=== PATIENT | female | born 1980 | race Hispanic/Latino ===

== ENCOUNTER 2023-12-14 00:47 | Inpatient (IN) | payer OTHER, SELFPAY ==
[2023-12-13 18:35] VITALS: BP 145/95
[2023-12-13 19:06] LABS: Urine Albumin Negative (Neg - Trace); Urine Bilirubin Negative (Negative); Urine Character Clear (Clear); Urine Color Yellow; Urine Glucose Negative (Negative); Urine Ketone Negative (Negative); Urine Leukocyte 2+ (Negative); Urine Nitrite Positive (Negative); Urine Occult Blood 3+ (Negative); Urine Urobilinogen Negative (Neg - 1+)
[2023-12-13 19:19] VITALS: BP 138/87
[2023-12-13 19:20] LABS: Urine Bacteria Moderate (Negative)
[2023-12-13 19:21] LABS: Urine White Cell 16-20 /HPF (0-5)
[2023-12-13 19:22] LABS: Urine Red Blood Cell 0-2 /HPF (0-2)
[2023-12-13 20:00] VITALS: BP 125/83
--- NOTE | 2023-12-13 20:46 | ED.GENMED ---
History of Present Illness
General
Chief Complaint: Abdominal Pain
Source: patient and welt slasher
Exam Limitations: none
Time Seen by Provider: 12/13/23 20:29
Nursing documentation reviewed up to this point in time: agreed with
Travel History
Have you had any contact with someone who has COVID-19?: No
Do you have any symptoms of coronavirus? Fever > 100 degrees, chills, cough, shortness of breath, sore throat, loss of taste or smell, muscle aches, or headache?: No
History of Present Illness
History of Present Illness:
43-year-old female presents emergency room complaining of right-sided abdominal pain since 11 AM. It came on suddenly. Her pain is persistent. She did not take any medication for the pain. No fevers. Nausea and vomiting. Hysterectomy 3 months
ago.
Past History
Past History
ED Past Medical History: HTN
ED Past Surgical History: and Gynecological (Hysterectomy)
Social History
Tobacco: Non-smoker
Alcohol: None
Drug: None
Personal:
Review of Systems
Review of Systems
Allergies reviewed?: Yes
All Other Systems: Not applicable
Constitutional: Reports no symptoms
EENT: Reports no symptoms
Respiratory: Reports no symptoms
Cardiac: Reports no symptoms
ABD/GI: Reports abdominal pain, nausea and vomiting
: Reports no symptoms
Musculoskeletal: Reports no symptoms
Skin: Reports no symptoms
Neurological: Reports no symptoms
Endocrine: Reports no symptoms
Hematologic/Lymphatic: Reports no symptoms
Psychiatric: Reports no symptoms
Phy Exam
Physical Exam
Physical Exam:
Physical Exam
General: Appears uncomfortable, afebrile
Neck: supple. no meningeal signs. normal posterior pharynx
Heart: s1/s2 regular rate and rhythm, no murmur. equal radial
pulses.
HEENT: Pupils equal round reactive to light, EOMI
Lungs: no acute respiratory distress. clear bilaterally
Abdomen: normal bowel sounds. Diffuse abdominal tenderness, right greater than left. No CVAT
Neuro: alert and oriented. no focal neurological deficits cranial nerves II through XII intact
Skin: no rash
Psychiatric: well kept. interactive and cooperative
Extremities: no edema. no calf tenderness. negative homans. good distal pulses
Course
Orders/Labs/Results
Orders:
Orders
12/13/23 18:53
Urinalysis Reflex To Culture Urgent
Date Specimen was Collected: 12/13/23
Time Specimen was Collected: 18:46
Urine Microscopic Reflex Cult Urgent
Urine Culture Urgent
ASHLEY Source: U
Specimen Description:
Date Specimen was Collected: 12/13/23
Time Specimen was Collected: 18:46
12/13/23 20:44
CT Abd/pelvis W Iv Cont Urgent
Comment:
Reason For Exam: right side abdominal pain for 9 hours
Morphine Sulfate 4 mg IV NOW STA
Ondansetron Injectable [Zofran] 4 mg IV NOW STA
12/13/23 20:45
IV Insert/Care/Rem.- Treatment PRN
0.9% Sodium Chloride 1000 ml [Nss] 1,000 ml IV BOLUS
12/13/23 21:11
Complete Blood Count/With Diff Urgent
Comprehensive Metabolic Panel Urgent
Lipase Urgent
Magnesium Urgent
Comment: ADD ON
12/13/23 21:59
Add On- LAB Urgent
Tests Added?: magnesium
12/13/23 22:06
Potassium Chloride [KCl] 40 meq 0.9% Sodium Chloride 250 ml [Nss] 250 ml IV NOW
12/13/23 23:19
CefTRIAXone [Rocephin] 1,000 mg IV NOW STA
12/14/23 08:00
Potassium Chloride 10% Elixir [KCl Elixir] 40 meq PO DAILY
Abnormal Lab Results
12/13/23 12/13/23
18:53 21:11
WBC 15.8 H 10^3/uL
(4.8-10.8)
Hct 33.1 L %
(37.0-47.0)
MCV 76.8 L fL
(81.0-99.0)
MCHC 37.2 H g/dL
(33.0-37.0)
Abs Immat Gran (auto) 0.1 H 10^3/uL
(0-0.05)
Absolute Neuts (auto) 11.1 H 10^3/uL
(1.4-6.5)
Absolute Monos (auto) 1.4 H 10^3/uL
(0.1-0.6)
Lymphocytes % 19.0 L %
(20.5-51.1)
Sodium 128 L mmol/L
(135-145)
Potassium 2.6 L* mmol/L
(3.5-5.1)
Chloride 92 L mmol/L
(98-107)
Ur Occult Blood Reflex 3+ A
(Negative)
Urine Nitrite (Reflex) Positive A
(Negative)
Leukocyte Esterase Rfl 2+ A
(Negative)
Urine WBC (Reflex) 16-20 A /HPF
(0-5)
Urine Bacteria (Reflex) Moderate A
(Negative)
12/13/23 21:11
12/13/23 21:11
Vital Signs
Initial and Last Documented VS:
Initial Vital Signs
Temp Pulse Resp BP Pulse Ox
98.1 F 86 18 145/95 99
12/13/23 18:35 12/13/23 18:35 12/13/23 18:35 12/13/23 18:35 12/13/23 18:35
Last Documented Vital Signs
Temp Pulse Resp BP Pulse Ox
98.1 F 73 14 127/75 99
12/13/23 18:35 12/13/23 22:30 12/13/23 21:15 12/13/23 22:00 12/13/23 22:30
MDM/Problems Addressed
Differential Diagnosis Includes:
Appendicitis, pyelonephritis, kidney stone
MDM/Problems Addressed:
43-year-old female with pyelonephritis, hypokalemia and hyponatremia. CT abdomen pelvis no signs of appendicitis. IV potassium given, IV Rocephin ordered. Admit to hospital
Chronic conditions affecting care: Previous abdomnial surgery ( and hysterectomy)
Acute Exacerbation and/or Progression of Chronic Illness: Previous abdomnial surgery ( hysterectomy)
*Radiology
Radiology exam reviewed: radiology read reviewed (CT abdomen pelvis shows mild right hydroureter, no signs of obstructive uropathy, no signs of appendicitis or acute findings.)
*Pulse Oximetry
Patient hypoxic: no
*EKG
Interpreted by ED Provider?: NA
*Wireless Sales Associate Interpretation
Rate: Wireless Sales Associate- N/A
*Critical Care Note
Total Time (30-74mins, 75-104mins- exclusive of procedures): Not Applicable
Patient Management
Social determinants of health affecting care: Living situation and Strong social support
Discussion with other providers: Hospitalist
Escalation/DeEscalation of care consider admission/obs:
admit indicated
ED Attending Note
-
Portions of this chart may have been created with voice recognition software.� Occasional wrong word or��sound alike� substitutions may have occurred due to the inherent limitations of voice recognition software.
Discharge Plan
Departure
Patient Disposition: Admit
Date of Disposition: 12/13/23
Time of Disposition: 23:18
Admit to: Med/Surg
Presentation/result/management discussed w/ accepting MD/DO: Hospitalist
Patient with high blood pressure during this ER visit?: Yes
Condition: Fair
Discharge Problem:
Pyelonephritis, Acute hypokalemia, Acute hyponatremia
Prescriptions:
No Action
sertraline 100 MG tablet
150 mg PO DAILY
sulfamethoxazole-trimethoprim 1 TABLET tablet
1 tab PO BID 3 Days 0RF
ibuprofen 600 MG tablet
600 mg PO Q6 Qty: 15 0RF
hydrochlorothiazide 25 mg tablet
25 mg PO DAILY
Referrals:
NONE,* [Family Provider] -
Interventions
Interventions:
*Risk Screen - Suicide Last Done: 12/13/23 18:39
*General Assessment Last Done: 12/13/23 19:33
*Neglect/Abuse Screening Last Done: 12/13/23 18:39
ED- Fall Risk Assessment Last Done: 12/13/23 19:33
*ED COVID-19 Vaccine History Last Done: 12/13/23 18:39
KK-Wnnwbg-Keqmzsgavp Assessment Last Done: 12/13/23 19:33
[2023-12-13 21:00] VITALS: BP 133/84
[2023-12-13] MEDS: ZOFRAN 4 MG IV (21:12)
[2023-12-13] MEDS: MORPHINE SULFATE 4 MG IV (21:12)
[2023-12-13] MEDS: NSS 1000 IV (21:12)
[2023-12-13 21:29] LABS: % Basophils 0.5 % (0-2); % Eosinophils 0.9 % (0-6); % Immature Granulocytes 0.5 % (0-0.5); % Neutrophils 70.1 % (42.2-75.2); Absolute Basophils 0.1 10^3/uL (0-0.2); Absolute Eosinophils 0.1 10^3/uL (0-0.7); Absolute Immature Granulocytes 0.1 10^3/uL (0-0.05); Absolute Monocytes 1.4 10^3/uL (0.1-0.6); Absolute Neutrophils 11.1 10^3/uL (1.4-6.5); Hematocrit 33.1 % (37.0-47.0); Hemoglobin 12.3 g/dL (12.0-16.0); Mean Corp Hgb Conc. 37.2 g/dL (33.0-37.0); Mean Corpuscular Hgb 28.5 pg (27.0-31.0); Mean Corpuscular Volume 76.8 fL (81.0-99.0); Mean Platelet Volume 9.3 fL (7.4-10.4); Nucleated Red Blood Cells % 0 %; Platelet Count 378 10^3/uL (130-400); Red Blood Cell Count 4.31 10^6/uL (4.20-5.40); White Blood Cell Count 15.8 10^3/uL (4.8-10.8)
[2023-12-13 21:49] LABS: ALT (SGPT) 20 U/L (0-35); AST (SGOT) 22 U/L (14-36); Albumin 4.4 g/dl (3.5-5.0); Alkaline Phosphatase 71 U/L (38-126); Blood Urea Nitrogen 9 mg/dl (7-17); Calcium 9.4 mg/dl (8.4-10.2); Carbon Dioxide 28 mmol/L (22-30); Chloride 92 mmol/L (98-107); Glucose 95 mg/dl (70-99); Lipase 79 U/L (23-300); Potassium 2.6 mmol/L (3.5-5.1); Sodium 128 mmol/L (135-145); Total Bilirubin 0.9 mg/dl (0.2-1.3); Total Protein 7.5 g/dl (6.3-8.2); eGFR > 60.00
[2023-12-13 22:00] VITALS: BP 127/75
[2023-12-13 22:39] LABS: Magnesium 1.8 mg/dl (1.6-2.3)
[2023-12-13] MEDS: KCL 270 MEQ IV (22:49)
[2023-12-13] MEDS: KCL ELIXIR 40 MEQ PO (23:36)
[2023-12-13] MEDS: ROCEPHIN 1000 MG IV (23:36)
--- NOTE | 2023-12-13 23:58 | HPS.HSE ---
Addendum entered and electronically signed by Riky Jones DO 12/14/23 00:38:
Patient seen and examined independently. Agree with findings and plan as set forth by Valerie Martinez PA-C.
Patient is a 43y F with PMH significant for hypertension who presents to ED complaining of several days of dysuria and malodorous urine followed by onset of R flank pain starting today No fevers or chills. No N/V/D. Patient notes that she has
been pushing fluids the past few days due to her urinary symptoms.
Ass:
UTI / Right Pyelonephritis
Right Hydroureter
Hypokalemia
Hyponatremia
Benign Hypertension
Depression
Plan:
Admit for further evaluation and treatment.
Suspect that hydro is inflammatory in nature / secondary to infection.
IV abx, IVFs, supportive care and follow for clinical improvement.
Urology evaluation for additional recommendations.
Hold HCTZ given low Na and K.
Replacement potassium given in the ED (IV and PO).
Follow for improvement and provide additional supplementation as needed.
Original Note:
Family Physician
-
Family Physician: * NONE
Chief Complaint
-
Right Flank/Back Pain
History of Present Illness
Patient is a 43-year-old female past medical history of hypertension and depression who presents with right back/flank pain that began around noon today. Patient reports dysuria, and foul-smelling urine for the last 3 to 4 days. Today she
developed right flank/low back pain which prompted her to come to the emergency department for evaluation. She denies fevers, sweats or chills. She denies prior history of nephrolithiasis. History is limited due to language barrier.
Medical History
Past Medical History
Past Medical History: Reports Other
Additional Past Medical History:
Essential Hypertension
Depression
Past Surgical History: Reports Other
Additional Past Surgical History:
Hysterectomy
Social History
Tobacco: Non-smoker
Alcohol: None
Family History
Family History: Not pertinent
Allergies / Home Medications
Allergies reflects when Allergies were last updated in [facility].
Home Medications with original date entered in [facility]
Allergy/Medication List:
Allergies
Allergy/AdvReac Type Severity Reaction Status Date / Time
No Known Drug Allergies Allergy Unknown Unknown Verified 05/22/23 18:46
Home Medications
sertraline 100 mg tablet 200 mg PO DAILY 12/31/20
cholecalciferol (vitamin D3) 25 mcg (1,000 unit) capsule (Vitamin D3) 25 mcg PO DAILY 12/13/23
cyanocobalamin (vitamin B-12) 1,000 mcg tablet (Vitamin B-12) 1,000 mcg PO DAILY 12/13/23
ferrous sulfate 325 mg (65 mg iron) tablet 325 mg PO BID 12/13/23
hydrochlorothiazide 25 mg tablet 25 mg PO DAILY 12/13/23
Review of Systems
-
Unable to obtain full review of systems at this time due to: Language Barrier
Physical Exam
Vital Signs
Vital Signs
Temp Pulse Resp BP Pulse Ox
98.1 F 73 14 127/75 99
12/13/23 18:35 12/13/23 22:30 12/13/23 21:15 12/13/23 22:00 12/13/23 22:30
Physical Exam
General: Comfortable and Conversant
HEENT: Anicteric and Moist mucous membranes
Respiratory: Clear and Non Labored Respirations
Cardiac: S1/S2 and Regular Rhythm
GI: Soft and Tender (Right upper and lower quadrants, and right flank)
Genito-urinary: No costovertebral tender and Other (Tenderness along right iliac crest region)
Musculoskeletal: No Clubbing, No Cyanosis and No Edema
Skin: Warm and Dry
Neuro: Awake, Alert, Oriented and Nonfocal/grossly intact
Laboratory Results
-
12/13/23 21:11
12/13/23 21:11
Laboratory Results
Total Bilirubin 0.9 mg/dl (0.2-1.3) 12/13/23 21:11
AST 22 U/L (14-36) 12/13/23 21:11
ALT 20 U/L (0-35) 12/13/23 21:11
Alkaline Phosphatase 71 U/L (38-126) 12/13/23 21:11
Lipase 79 U/L (23-300) 12/13/23 21:11
Data Reviewed
-
CT Scan: Report Reviewed by me
Lab Data: Labs Reviewed by me
Impression/Plan
-
Right Pyelonephritis
-CT scan shows evidence of right hydroureter without mention of obstructing stone - Consult Urology
-Continue Ceftriaxone
-Continue IVFs
-Continue morphine for pain
Hyponatremia / Hypokalemia, likely secondary to HCTZ
-Continue IVFs
-Replace potassium
-Hold HCTZ
-Recheck labs in AM
Essential Hypertension
-HCTZ on hold
-Add hydralazine prn
Depression
-Continue sertraline
DVT proph: Lovenox
Code Status: Full Code
[2023-12-14] VITALS (7 sets, daily range): BP systolic 109–128; BP diastolic 63–75; BMI 34.1; BMI 34.8
--- NOTE | 2023-12-14 02:33 | PTCARENOTE ---
Patient arrived to unit via stretcher with dx of pyelonephritis, hyponatremia and hypokalemia. AAOx3. Patient speaks little Vietnamese.Language line obtained due to Indonesian as primary language. Call vargas within reach. Oriented to unit.
[2023-12-14] MEDS: MORPHINE SULFATE 2 MG IV ×2 (02:42→11:41)
[2023-12-14] MEDS: NSS with KCL 20 MEQ 1000 IV ×2 (03:44→11:39)
[2023-12-14 07:01] LABS: Hematocrit 33.2 % (37.0-47.0); Hemoglobin 11.7 g/dL (12.0-16.0); Mean Corp Hgb Conc. 35.2 g/dL (33.0-37.0); Mean Corpuscular Hgb 28.5 pg (27.0-31.0); Mean Corpuscular Volume 80.8 fL (81.0-99.0); Mean Platelet Volume 9.8 fL (7.4-10.4); Platelet Count 347 10^3/uL (130-400); Red Blood Cell Count 4.11 10^6/uL (4.20-5.40); Red Cell Dist. Width 13.2 % (11.5-14.5); White Blood Cell Count 11.3 10^3/uL (4.8-10.8)
[2023-12-14 07:38] LABS: Blood Urea Nitrogen 8 mg/dl (7-17); Estimated Creatinine Clearance > 125 ml/min; Glucose 94 mg/dl (70-99)
[2023-12-14 07:39] LABS: Calcium 8.8 mg/dl (8.4-10.2); Carbon Dioxide 24 mmol/L (22-30); Chloride 101 mmol/L (98-107); Magnesium 2.1 mg/dl (1.6-2.3); Potassium 3.6 mmol/L (3.5-5.1); Sodium 133 mmol/L (135-145); eGFR > 60.00
[2023-12-14] MEDS: ZOLOFT 200 MG PO (07:53)
--- NOTE | 2023-12-14 11:51 | W.PN.HOSP.TC ---
Today's Communication/Plan
-
IV Ceftriaxone
bladder scan
F/U cultures
advance diet
Assessment / Plan
Assessment / Plan
CT A/P
IMPRESSION:
1. � Moderate to severe distention of the urinary bladder without evidence for abnormal wall thickening or perivesical inflammation.
2. � Mild asymmetric dilatation of the right ureter and right intrarenal collecting system suspicious for right-sided vesicoureteral reflux.
3. � No CT evidence for intrarenal calculus or ureteral calculus.
4. � Mild to moderate diffuse hepatic steatosis.
5. � Mild hepatosplenomegaly.
6. � Small bilateral ovarian cysts.
7. � Previous hysterectomy.
Right Pyelonephritis
-CT scan without evidence of ureteral calculus
-Continue Ceftriaxone
-Continue IVFs
-Continue morphine for pain
-distention of urinary bladder on CT --> bladder scan now; straight cath protocol
Hyponatremia / Hypokalemia, likely secondary to HCTZ
-Continue IVFs
-K repleted
-Na and K improved this AM
-hold HCTZ on DC
Essential Hypertension
-HCTZ on hold
-may need to substitute with new med on DC
Depression
-Continue sertraline
DVT proph: Lovenox
Code Status: Full Code
Anticipated Discharge: 24 - 48 hours
Subjective/Interval History
-
Date of Service: December 14, 2023
continuing to have dysuria
feels burning in arm from IVF
Objective Data
-
Labs:
Laboratory Results
12/14/23
05:28
WBC 11.3 H
Hgb 11.7 L
Hct 33.2 L
Plt Count 347
Sodium 133 L
Potassium 3.6 D
Chloride 101
Carbon Dioxide 24
BUN 8
Creatinine 0.6
Glucose 94
Calcium 8.8
Vital Signs:
Vital Signs
Temp Pulse Resp BP Pulse Ox
98.8 F 79 16 118/66 98
12/14/23 11:00 12/14/23 11:00 12/14/23 11:00 12/14/23 11:00 12/14/23 11:00
Review of Systems
-
History Source: Patient
All other systems: Reviewed and negative
Physical Exam
-
General: No Apparent Distress
HEENT: PERRLA
Respiratory: Clear to Auscultation; Negative Wheezes
Cardiac: Regular Rhythm and S1/S2
GI: Soft, Nontender and Other (suprapubic tenderness )
Musculoskeletal: No Edema
Skin: Warm and Dry; Negative Rash
Neuro: AO x 3
Psych: Calm
Data Reviewed
-
Diagnostic Radiology: Report Reviewed by me
Labs: Labs Reviewed by me
[2023-12-14] MEDS: KCL 20 MEQ PO (12:15)
[2023-12-14] MEDS: NSS 1000 IV (12:15)
--- NOTE | 2023-12-14 12:17 | CONS.URO ---
Consultation
-
Performing Provider: Peffer
Reason for Consultation: Hydroureter, Pyelonephritis
Medical History
History of Present Illness
43F without significant PMH only hypertension who presents to ED complaining of several days of dysuria and malodorous urine followed by onset of R flank pain starting yesterday�
No fevers or chills. No N/V/D.�
No hematuria
She has no prior urologic history - no stones
No baseline voiding dysfunction or recurrent UTI
Has not seen a urologist in the past
CT showed distended bladder as well as mild R hydroureter/renal pelvis fullness
Past Medical History
Past Medical History: HTN
Past Surgical History: None
Social History
Tobacco: Non-smoker
Alcohol: None
Family History
Family History: Reviewed & Not Pertinent
Allergies/Home Medications
Allergies
Allergy/AdvReac Type Severity Reaction Status Date / Time
No Known Drug Allergies Allergy Unknown Unknown Verified 05/22/23 18:46
Home Medications
Medication Instructions Recorded Confirmed Type
sertraline 100 mg tablet 200 mg PO DAILY 12/31/20 12/13/23 History
cholecalciferol (vitamin D3) 25 25 mcg PO DAILY 12/13/23 12/13/23 History
mcg (1,000 unit) capsule (Vitamin
D3)
cyanocobalamin (vitamin B-12) 1,000 mcg PO DAILY 12/13/23 12/13/23 History
1,000 mcg tablet (Vitamin B-12)
ferrous sulfate 325 mg (65 mg 325 mg PO BID 12/13/23 12/13/23 History
iron) tablet
hydrochlorothiazide 25 mg tablet 25 mg PO DAILY 12/13/23 12/13/23 History
Physical Exam
Vital Signs
Vital Signs
Temp Pulse Resp BP Pulse Ox
98.8 F 79 16 118/66 98
12/14/23 11:00 12/14/23 11:00 12/14/23 11:00 12/14/23 11:00 12/14/23 11:00
Lab / Testing Results
Laboratory Results
12/14/23 05:28
12/14/23 05:28
Physical Exam
General: Well Developed and No Apparent Distress
Respiratory: Clear
GI: Soft and Non Tender
Genito-urinary: No Costovertebral Tend
Neuro: AO x 3
Psych: Calm and Intact Judgement
Assessment / Plan
-
43F admitted with acute UTI/cystitis with likely early R pyelonephritis
CT showed distended bladder and mild fullness of R collecting system
- Mild R upper tract dilation is likely reactive due to ascending UTI
- No evidence of obstruction or stone. Recently passed stone is possible but less likely
- Distended bladder seen on CT - today a bladder scan showed 750 and she voided with PVR 0cc - shows generally high capacity bladder, no concern for retention
Continue abx pending cultures
No intervention or follow up needed
Will sign off - please call with any questions
Data Reviewed
-
CT Scan: Image personally visualized and interpreted
[2023-12-14] MEDS: LOVENOX 40 MG SC (17:20)
[2023-12-14] MEDS: TYLENOL 650 MG PO (20:41)
[2023-12-14] MEDS: ROCEPHIN 1000 MG IV (23:11)
[2023-12-14] MEDS: STERILE WATER FOR INJECTION 10 ML IV (23:11)
[2023-12-15 03:19] VITALS: BP 111/63
[2023-12-15 06:00] VITALS: BMI 35.3
[2023-12-15] MEDS: NSS 1000 IV ×2 (06:11→15:13)
[2023-12-15] MEDS: ZOLOFT 200 MG PO (07:26)
[2023-12-15] MEDS: MORPHINE SULFATE 2 MG IV (07:29)
[2023-12-15 07:35] LABS: % Basophils 1.1 % (0-2); % Eosinophils 3.2 % (0-6); % Immature Granulocytes 0.6 % (0-0.5); % Lymphocytes 23.2 % (20.5-51.1); % Neutrophils 62.9 % (42.2-75.2); Absolute Basophils 0.1 10^3/uL (0-0.2); Absolute Eosinophils 0.2 10^3/uL (0-0.7); Absolute Lymphocytes 1.7 10^3/uL (1.2-3.4); Absolute Monocytes 0.7 10^3/uL (0.1-0.6); Absolute Neutrophils 4.6 10^3/uL (1.4-6.5); Hematocrit 34.2 % (37.0-47.0); Hemoglobin 11.9 g/dL (12.0-16.0); Mean Corp Hgb Conc. 34.8 g/dL (33.0-37.0); Mean Corpuscular Hgb 28.5 pg (27.0-31.0); Mean Platelet Volume 9.7 fL (7.4-10.4); Nucleated Red Blood Cells % 0 %; Platelet Count 356 10^3/uL (130-400); Red Blood Cell Count 4.17 10^6/uL (4.20-5.40); Red Cell Dist. Width 13.6 % (11.5-14.5); White Blood Cell Count 7.2 10^3/uL (4.8-10.8)
[2023-12-15 07:45] LABS: Blood Urea Nitrogen 8 mg/dl (7-17); Calcium 8.9 mg/dl (8.4-10.2); Carbon Dioxide 26 mmol/L (22-30); Chloride 103 mmol/L (98-107); Estimated Creatinine Clearance > 125 ml/min; Glucose 92 mg/dl (70-99); Magnesium 2.2 mg/dl (1.6-2.3); Sodium 134 mmol/L (135-145); eGFR > 60.00
[2023-12-15 07:47] VITALS: BP 129/79
[2023-12-15 11:20] VITALS: BP 133/75
--- NOTE | 2023-12-15 11:49 | CM ---
retail pharmacy manager reviewed patient's chart and met with patient and patient reports that she lives with her sister and son in an apartment, patient is independent with adl's and ambulation, patient drives, patient has no insurance and follows up with the
[facility]. Patient also uses [facility].
Plan; Home with family when stable. no needs.
[2023-12-15 15:10] VITALS: BP 121/69
--- NOTE | 2023-12-15 16:44 | W.PN.HOSP.TC ---
Today's Communication/Plan
-
start lisinopril
Continue Ab
Assessment / Plan
Assessment / Plan
CT A/P
IMPRESSION:
1. � Moderate to severe distention of the urinary bladder without evidence for abnormal wall thickening or perivesical inflammation.
2. � Mild asymmetric dilatation of the right ureter and right intrarenal collecting system suspicious for right-sided vesicoureteral reflux.
3. � No CT evidence for intrarenal calculus or ureteral calculus.
4. � Mild to moderate diffuse hepatic steatosis.
5. � Mild hepatosplenomegaly.
6. � Small bilateral ovarian cysts.
7. � Previous hysterectomy.
#Right Pyelonephritis
-CT scan without evidence of ureteral calculus
-Continue Ceftriaxone
-Continue IVFs
-Continue morphine for pain
-distention of urinary bladder on CT --> bladder scan now; straight cath protocol
#Hyponatremia / Hypokalemia, likely secondary to HCTZ
-K repleted
-Na and K improved this AM
-hold HCTZ on DC
#Essential Hypertension
-HCTZ on hold
-may need to substitute with new med on DC
-Add low dose lisinopril
#Depression
-Continue sertraline
#Hepatic steatosis- Weight loss
#Obesity - Weight loss
#DVT proph: Lovenox
#Code Status: Full Code
USed meter reading clerk to talk to pt and family
Anticipated Discharge: Within 24 hours
Subjective/Interval History
-
Date of Service: December 15, 2023
Objective Data
-
Labs:
Laboratory Results
12/15/23
06:34
WBC 7.2
Hgb 11.9 L
Hct 34.2 L
Plt Count 356
Sodium 134 L
Potassium 4.0
Chloride 103
Carbon Dioxide 26
BUN 8
Creatinine 0.5 L
Glucose 92
Calcium 8.9
Vital Signs:
Vital Signs
Temp Pulse Resp BP Pulse Ox
98.6 F 80 22 121/69 99
12/15/23 15:10 12/15/23 15:10 12/15/23 15:10 12/15/23 15:10 12/15/23 15:10
I&O
12/14/23 12/15/23 12/16/23
06:59 06:59 06:59
Intake Total 2560 / 2560
Balance 2560 / 2560
[2023-12-15] MEDS: LOVENOX 40 MG SC (16:48)
[2023-12-15] MEDS: ZESTRIL 5 MG PO (17:34)
[2023-12-15 19:08] VITALS: BP 129/81
[2023-12-15] MEDS: TORADOL 10 MG IV (20:41)
[2023-12-15] MEDS: STERILE WATER FOR INJECTION 10 ML IV (23:02)
[2023-12-15] MEDS: ROCEPHIN 1000 MG IV (23:02)
[2023-12-15 23:45] VITALS: BP 127/74
[2023-12-16 03:00] VITALS: BP 136/80
[2023-12-16 05:57] VITALS: BMI 35.1
[2023-12-16 07:52] VITALS: BP 135/76
[2023-12-16] MEDS: ZESTRIL 5 MG PO (08:23)
[2023-12-16] MEDS: ZOLOFT 200 MG PO (08:24)
--- NOTE | 2023-12-16 10:59 | CM ---
Home no needs when stable, patient to follow up with the [facility] at discharge.
Plan; Home when stable.
[2023-12-16 11:11] VITALS: BP 116/68
--- NOTE | 2023-12-16 14:55 | W.PN.HOSP.TC ---
Today's Communication/Plan
-
Advised to come back if develops fever or increasing pain.
Assessment / Plan
Assessment / Plan
CT A/P
IMPRESSION:
1. � Moderate to severe distention of the urinary bladder without evidence for abnormal wall thickening or perivesical inflammation.
2. � Mild asymmetric dilatation of the right ureter and right intrarenal collecting system suspicious for right-sided vesicoureteral reflux.
3. � No CT evidence for intrarenal calculus or ureteral calculus.
4. � Mild to moderate diffuse hepatic steatosis.
5. � Mild hepatosplenomegaly.
6. � Small bilateral ovarian cysts.
7. � Previous hysterectomy.
Abd pain much better, Mild suprapubic discomfort
CVS: S1-S2 normal
Chest: CTA B/L
Abdomen: Soft, No CVA tenderness, Bowel sounds present
Extremities: No edema, normal pulses
SHELL PRESS OPERATOR: Non focal exam
#Right Pyelonephritis
-CT scan without evidence of ureteral calculus
- Ceftriaxone to be changed to Ceftin
#Hyponatremia / Hypokalemia, likely secondary to HCTZ
-K repleted
-Na and K improved
-hold HCTZ on DC
#Essential Hypertension
-HCTZ on hold
-Tolerating lisinopril
#Depression
-Continue sertraline
#Hepatic steatosis- Weight loss advised
Chances of cirrhosis because of CORONEL explained to the patient
#Obesity - Weight loss
#DVT proph: Lovenox
#Code Status: Full Code
Used diplomatic interpreter/translator video call.
All questions answered.
Anticipated Discharge: Today
Subjective/Interval History
-
Date of Service: December 16, 2023
Objective Data
-
Vital Signs:
Vital Signs
Temp Pulse Resp BP Pulse Ox
98.3 F 81 20 116/68 96
12/16/23 11:11 12/16/23 11:11 12/16/23 11:11 12/16/23 11:11 12/16/23 11:11
I&O
12/15/23 12/16/23 12/17/23
06:59 06:59 06:59
Intake Total 2560 / 2560 1260 / 1260
Balance 2560 / 2560 1260 / 1260
--- NOTE | 2023-12-16 14:58 | W.DS.TRANS ---
Addendum entered and electronically signed by Shad Rodriguez MD 12/16/23 18:19:
Dictation- [id number]
Original Note:
DC Summary - Filling [facility]
-
Discharge Instructions:
Discharge Diagnosis/Procedures UTI potassium secondary to HCTZ, hypertension,
depression, fatty liver
Diet Low Cholesterol
Activity As tolerated
Driving Restrictions As prior to admission
Stop these medications: Stop hydrochlorothiazide
Instructions:
Stand-Alone Forms:
Changes to Home Medications: Yes
Discharge Medications:
DC Medications w/original date entered in [facility]
sertraline 100 mg tablet 200 mg PO DAILY Depression 12/31/20
cholecalciferol (vitamin D3) 25 mcg (1,000 unit) capsule (Vitamin D3) 25 mcg PO DAILY Supplement 12/13/23
cyanocobalamin (vitamin B-12) 1,000 mcg tablet (Vitamin B-12) 1,000 mcg PO DAILY Supplement 12/13/23
ferrous sulfate 325 mg (65 mg iron) tablet 325 mg PO BID Supplement 12/13/23
cefuroxime axetil 500 mg tablet 500 mg PO BID Infection #20 tabs 12/16/23
lisinopril 5 mg tablet 5 mg PO DAILY Blood pressure #30 tabs 12/16/23
Home Medication Changes
new
cefuroxime axetil 500 mg tablet 500 mg PO BID Infection #20 tabs 12/16/23
lisinopril 5 mg tablet 5 mg PO DAILY Blood pressure #30 tabs 12/16/23
Stopped HCTZ
Pending Results: No
[2023-12-16 15:15] VITALS: BP 119/79
[2023-12-16] MEDS: CEFTIN 500 MG PO (15:21)
== END 2023-12-16 17:33 | disposition home or self-care (01) | DRG 690 ==
LOC: 4 WEST ACU 00:47
PROVIDERS: Emergency Medicine; Physician Assistant Medical; Student in an Organized Health Care Education/Training Program; ADMITTING PHYSICIAN Hospitalist; ATTENDING PHYSICIAN Hospitalist; CONSULT PHYSICIAN Urology; EMERGENCY PHYSICIAN Emergency Medicine
DX: N13.6 Pyonephrosis (principal); E87.1 Hypo-osmolality and hyponatremia; I10 Essential (primary) hypertension; E87.6 Hypokalemia; B96.20 Unspecified Escherichia coli [E. coli] as the cause of diseases classified elsewhere; K76.0 Fatty (change of) liver, not elsewhere classified; F32.A Depression, unspecified; N32.89 Other specified disorders of bladder; E66.9 Obesity, unspecified; Z68.35 Body mass index [BMI] 35.0-35.9, adult
CPT/HCPCS: 74177; 80048; 80053; 81003; 81015; 83690; 83735; 85025; 85027; 87077; 87086; 87186; 96361; 96374; 96375; 99285; Q9967

== ENCOUNTER → 2024-02-03 11:30 | Outpatient (REF) | payer OTHER, SELFPAY ==
[2024-02-03 12:00] LABS: Hematocrit 36.9 % (37.0-47.0); Hemoglobin 12.8 g/dL (12.0-16.0); Mean Corp Hgb Conc. 34.7 g/dL (33.0-37.0); Mean Corpuscular Hgb 28.8 pg (27.0-31.0); Mean Corpuscular Volume 83.1 fL (81.0-99.0); Platelet Count 318 10^3/uL (130-400); Red Blood Cell Count 4.44 10^6/uL (4.20-5.40); Red Cell Dist. Width 12.6 % (11.5-14.5); White Blood Cell Count 10.2 10^3/uL (4.8-10.8)
[2024-02-03 12:31] LABS: ALT (SGPT) 19 U/L (0-35); AST (SGOT) 17 U/L (14-36); Albumin 4.3 g/dl (3.5-5.0); Alkaline Phosphatase 76 U/L (38-126); Blood Urea Nitrogen 12 mg/dl (7-17); Calcium 9.5 mg/dl (8.4-10.2); Carbon Dioxide 26 mmol/L (22-30); Chloride 101 mmol/L (98-107); Glucose 94 mg/dl (70-99); Potassium 3.9 mmol/L (3.5-5.1); Sodium 135 mmol/L (135-145); Total Bilirubin 0.2 mg/dl (0.2-1.3); Total Protein 7.3 g/dl (6.3-8.2); eGFR > 60.00
[2024-02-03 12:47] LABS: Vitamin D, 25-OH*** 36.1 ng/mL (30-80)
[2024-02-03 13:20] LABS: Vitamin B12 650 pg/ml (239-931)
== END ==
LOC: REG 11:30
PROVIDERS: ATTENDING PHYSICIAN Nurse Practitioner Adult Health
DX: I10 Essential (primary) hypertension (principal); E87.6 Hypokalemia; D50.0 Iron deficiency anemia secondary to blood loss (chronic); E53.8 Deficiency of other specified B group vitamins; E55.9 Vitamin D deficiency, unspecified
CPT/HCPCS: 36415; 80053; 82306; 82607; 85027

== ENCOUNTER → 2024-03-17 10:20 | Outpatient (REF) | payer OTHER, SELFPAY ==
[2024-03-19 13:18] LABS: Syphilis/T. pallidum Ab Reflex Negative (Negative)
== END ==
LOC: REG 10:20
PROVIDERS: ATTENDING PHYSICIAN Family Medicine
DX: Z11.1 Encounter for screening for respiratory tuberculosis (principal); Z11.3 Encounter for screening for infections with a predominantly sexual mode of transmission
CPT/HCPCS: 36415; 86480; 86780

== ENCOUNTER → 2024-03-26 16:11 | Outpatient (REF) | payer OTHER, SELFPAY | LOC: RAD 16:11 | PROVIDERS: ATTENDING PHYSICIAN Family Medicine | DX: R76.12 Nonspecific reaction to cell mediated immunity measurement of gamma interferon antigen response without active tuberculosis (principal) | CPT/HCPCS: 71046 ==

== ENCOUNTER → 2025-02-12 11:32 | Outpatient (REF) | payer OTHER, SELFPAY ==
[2025-02-12 12:01] LABS: Hemoglobin 12.3 g/dL (12.0-16.0); Mean Corp Hgb Conc. 34.2 g/dL (33.0-37.0); Mean Corpuscular Hgb 28.7 pg (27.0-31.0); Mean Corpuscular Volume 84.1 fL (81.0-99.0); Mean Platelet Volume 9.8 fL (7.4-10.4); Platelet Count 338 10^3/uL (130-400); Red Blood Cell Count 4.28 10^6/uL (4.20-5.40); Red Cell Dist. Width 12.9 % (11.5-14.5); White Blood Cell Count 10.3 10^3/uL (4.8-10.8)
[2025-02-12 12:24] LABS: ALT (SGPT) 20 U/L (0-35); AST (SGOT) 25 U/L (14-36); Albumin 4.7 g/dl (3.5-5.0); Alkaline Phosphatase 69 U/L (38-126); Blood Urea Nitrogen 10 mg/dl (7-17); Calcium 9.7 mg/dl (8.4-10.2); Carbon Dioxide 25 mmol/L (22-30); Chloride 102 mmol/L (98-107); Glucose 109 mg/dl (70-99); HDL Cholesterol 49 mg/dl; LDL Cholesterol, Calculated 72 mg/dl; Potassium 3.9 mmol/L (3.5-5.1); Sodium 137 mmol/L (135-145); Total Bilirubin 0.4 mg/dl (0.2-1.3); Total Cholesterol 133 mg/dl (50-199); Total Protein 7.4 g/dl (6.3-8.2); Triglyceride 64 mg/dl (10-149); Very Low Density Lipoprotein 12 mg/dl (0-30); eGFR > 60.00
[2025-02-12 12:39] LABS: Vitamin D, 25-OH*** 52.4 ng/mL (30-80)
[2025-02-12 13:12] LABS: Vitamin B12 779 pg/ml (239-931)
== END ==
LOC: CLINIC 11:32
PROVIDERS: ATTENDING PHYSICIAN Nurse Practitioner Adult Health
DX: I10 Essential (primary) hypertension (principal); E55.9 Vitamin D deficiency, unspecified; E53.8 Deficiency of other specified B group vitamins; D50.0 Iron deficiency anemia secondary to blood loss (chronic)
CPT/HCPCS: 80053; 80061; 82306; 82607; 85027

== ENCOUNTER 2025-06-12 10:23 | Emergency (ER) | payer OTHER, SELFPAY ==
[2025-06-12 10:30] VITALS: BP 119/77
--- NOTE | 2025-06-12 11:45 | ED.GENMED ---
History of Present Illness
General
Chief Complaint: Abdominal Pain
Source: patient and family
Exam Limitations: none
Time Seen by Provider: 06/12/25 11:24
Nursing documentation reviewed up to this point in time: agreed with
History of Present Illness
History of Present Illness:
Note:
CHIEF COMPLAINT(S)
Epigastric pain
HISTORY OF PRESENT ILLNESS
The patient is a 45-year-old female who presents with complaints of epigastric pain. She reported eating 'sausage' yesterday but did not experience pain after eating. There were no issues with urination or bleeding. The patient did not report any
past surgeries affecting her current condition.
MEDICATIONS
The patient is currently taking sertraline for anxiety and depression, and Vitamin B12 supplements.
REVIEW OF SYSTEMS
- Gastrointestinal: Gastric pain noted.
- General: Reports of thinness or weight loss.
- Psychiatric: Anxiety and depression mentioned as part of medication regimen.
PHYSICAL EXAM
General: Alert, no acute distress.
Skin: Warm, dry.
Head: Normocephalic, atraumatic.
Neck: Supple, trachea midline.
Eyes, ears, nose, mouth, and throat: Oral mucosa moist.
Cardiovascular: Normal peripheral perfusion, No edema.
Respiratory: Respirations are non-labored.
Gastrointestinal: Abdomen nondistended. mild epigastric tenderness
Back: Normal range of motion, Normal alignment.
Musculoskeletal: Normal range of motion, normal strength.
Neurological: Alert and oriented to person, place, time, and situation, No focal neurological deficit observed.
Psychiatric: Cooperative, appropriate mood & affect.
PLAN
1. Perform an ultrasound to assess gastric concerns.
2. Conduct a CT scan for further evaluation of the abdominal area.
3. Address any pain management needs as the patient currently takes 200 mg for control.
DIFFERENTIAL DIAGNOSIS
The differential diagnosis includes, in no particular order and is not limited to:
1. Gastric ulcer
2. Gastroesophageal reflux disease (GERD)
3. Gastritis
4. Peptic ulcer disease
5. Gallbladder disease
6. Celiac disease
7. Chronic pancreatitis
8. Inflammatory bowel disease
9. Irritable bowel syndrome
10. Anxiety-related gastric symptoms
CARE-UPDATE
06/12/25 - 14:56
The patient continues to experience episodic abdominal pain. Differential includes colitis and possible UTI. Plan to repeat urinalysis and follow up with primary care for lipase testing. Consider dietary modifications and hydration support.
Monitoring required for any escalation of symptoms or new developments.
Disposition:
SUMMARY OF ENCOUNTER
The patient, a 45-year-old female, presented with gastric pain and weight loss. An ultrasound and CT scan were ordered to assess potential gastric concerns. At discharge, the diagnosis included colitis and a possible urinary tract infection (UTI).
Lipase levels were slightly elevated, but pancreatitis was doubted. The patient was seen to be stable for discharge.
DISPOSITION
Discharge home.
ASSESSMENT
The patient was assessed to likely have colitis, with a consideration for a urinary tract infection due to stable conditions and slightly elevated lipase levels.
PLAN
Repeat lipase testing following discharge. Continue outpatient monitoring of symptoms and pursue primary care follow-up for potential colitis and UTI.
INDEPENDENT REVIEW OF LABS AND INTERPRETATION OF TESTS
My independent review of lipase indicates it is slightly elevated, consistent with testing.
FOLLOW-UP INSTRUCTIONS
The patient was instructed to follow up with primary care to repeat the lipase test.
MEDICAL DECISION MAKING
-Complexity of Data Reviewed: Chronic conditions affecting care include anxiety and depression. Differential diagnosis list includes gastric ulcer, gastroesophageal reflux disease (GERD), gastritis, peptic ulcer disease, gallbladder disease, celiac
disease, chronic pancreatitis, inflammatory bowel disease, irritable bowel syndrome, and anxiety-related gastric symptoms.
-Data:
Category [address] scan of the abdominal area were ordered to assess gastric concerns.
-Risk: Consideration of Admission/Observation: Escalation of care, including admission/observation, was considered given the complexity and risk of the patients presenting complaint and exam findings. However, ultimately I feel the patient is safe
for outpatient management with close follow-up. Reasoning: Work-up reassuring, does not reveal any acute life/organ-threatening processes, patients symptoms well controlled upon reevaluation, reexamination is reassuring, vitals are stable, patient
agreeable with discharge, and reliable for follow-up.
DIAGNOSIS
- Colitis (ICD-10: K52.9)
- Urinary tract infection, unspecified site (ICD-10: N39.0)
Past History
Past History
ED Past Medical History: HTN
ED Past Surgical History: and Gynecological (Hysterectomy)
Social History
Tobacco: Non-smoker
Alcohol: None
Drug: None
Personal:
Phy Exam
Physical Exam
Physical Exam:
.
Course
Orders/Labs/Results
Orders:
Orders
06/12/25 11:40
IV Insert/Care/Rem.- Treatment PRN
06/12/25 11:42
CT Abd/pelvis W Iv Cont Urgent
Comment:
Reason For Exam: epigastric pain
06/12/25 11:43
0.9% Sodium Chloride 1000 ml [Nss] 1,000 ml IV BOLUS
Test Result ONCE
06/12/25 11:45
Morphine Sulfate 4 mg IV NOW STA
Ondansetron Injectable [Zofran] 4 mg IV NOW STA
06/12/25 11:55
Complete Blood Count/With Diff Urgent
Comprehensive Metabolic Panel Urgent
HCG, Serum Qualitative Screen Urgent
Lipase Urgent
06/12/25 13:59
Urinalysis Reflex To Culture Urgent
Date Specimen was Collected: 06/12/25
Time Specimen was Collected: 13:57
Urine Microscopic Reflex Cult Urgent
Urine Culture Urgent
ASHLEY Source: U
Specimen Description:
Date Specimen was Collected: 06/12/25
Time Specimen was Collected: 13:57
Abnormal Lab Results
06/12/25 06/12/25
11:55 13:59
Hct 35.7 L %
(37.0-47.0)
Absolute Neuts (auto) 7.6 H 10^3/uL
(1.4-6.5)
Absolute Monos (auto) 0.8 H 10^3/uL
(0.1-0.6)
Lymphocytes % 17.2 L %
(20.5-51.1)
BUN 3 L mg/dl
(7-17)
AST 13 L U/L
(14-36)
Lipase 328 H U/L
(23-300)
Urine Ketones 1+ A
(Negative)
Ur Occult Blood Reflex 1+ A
(Negative)
Urine Nitrite (Reflex) Positive A
(Negative)
Leukocyte Esterase Rfl 1+ A
(Negative)
Urine RBC 3-6 A /HPF
(0-2)
Urine WBC (Reflex) 11-15 A /HPF
(0-5)
Urine Bacteria (Reflex) Few A
(Negative)
06/12/25 11:55
06/12/25 11:55
Vital Signs
Initial and Last Documented VS:
Initial Vital Signs
Temp Pulse Resp BP Pulse Ox
98.7 F 68 18 119/77 98
06/12/25 10:30 06/12/25 10:30 06/12/25 10:30 06/12/25 10:30 06/12/25 10:30
Last Documented Vital Signs
Temp Pulse Resp BP Pulse Ox
98.7 F 62 16 113/62 99
06/12/25 10:30 06/12/25 14:39 06/12/25 14:39 06/12/25 14:39 06/12/25 14:39
*Pulse Oximetry
SaO2: 98
Oxygen Mode of Delivery: Room air
Patient hypoxic: no
*Critical Care Note
Total Time (30-74mins, 75-104mins- exclusive of procedures): Not Applicable
ED Attending Note
-
Portions of this chart may have been created with voice recognition software.� Occasional wrong word or��sound alike� substitutions may have occurred due to the inherent limitations of voice recognition software.
Discharge Plan
Departure
Patient Disposition: Home (Routine Discharge)
Date of Disposition: 06/12/25
Time of Disposition: 14:46
Patient with high blood pressure during this ER visit?: No
Condition: Good
Discharge Problem:
UTI (urinary tract infection), Colitis
Instructions: Urinary tract infections in adults, Colitis
Prescriptions:
New
amoxicillin-pot clavulanate 875-125 mg tablet
1 tab PO BID Qty: 14 0RF
No Action
sertraline 100 MG tablet
200 mg PO DAILY
cyanocobalamin (vitamin B-12) [Vitamin B-12] 1,000 mcg Tablet
1,000 mcg PO DAILY
ferrous sulfate 325 mg (65 mg iron) Tablet
325 mg PO BID
cholecalciferol (vitamin D3) [Vitamin D3] 25 mcg (1,000 unit) Capsule
25 mcg PO DAILY
lisinopril 5 mg Tablet
5 mg PO DAILY Qty: 30 0RF
cefuroxime axetil 500 mg Tablet
500 mg PO BID Qty: 20 0RF
Referrals:
UNKNOWN - PT DOES,NOT KNOW [Family Provider]
Activity Restrictions/Additional Instructions:
Realice un seguimiento con atenci�n primaria para repetir el an�lisis de lipasa en 1 semana.
Interventions
Interventions:
*Risk Screen - Suicide Last Done: 06/12/25 10:30
*General Assessment Last Done: 06/12/25 10:30
*Neglect/Abuse Screening Last Done: 06/12/25 10:30
*ED- Fall Risk Assessment Last Done: 06/12/25 14:04
PY-Wnlchx-Ydeosgyxpp Assessment Last Done: 06/12/25 12:13
Discharge Date and Time
Print Language: DANISH
[2025-06-12] MEDS: MORPHINE SULFATE 4 MG IV (11:55)
[2025-06-12] MEDS: NSS 1000 IV (11:55)
[2025-06-12] MEDS: ZOFRAN 4 MG IV (11:56)
[2025-06-12 12:05] LABS: Hematocrit 35.7 % (37.0-47.0); Hemoglobin 12.5 g/dL (12.0-16.0); Mean Corp Hgb Conc. 35.0 g/dL (33.0-37.0); Mean Corpuscular Volume 82.8 fL (81.0-99.0); Nucleated Red Blood Cells % 0 %; Platelet Count 351 10^3/uL (130-400); Red Cell Dist. Width 12.7 % (11.5-14.5)
[2025-06-12 12:33] LABS: HCG, Serum Qualitative Screen Negative
[2025-06-12 12:36] LABS: ALT (SGPT) 13 U/L (0-35); AST (SGOT) 13 U/L (14-36); Albumin 4.3 g/dl (3.5-5.0); Alkaline Phosphatase 58 U/L (38-126); Blood Urea Nitrogen 3 mg/dl (7-17); Calcium 9.9 mg/dl (8.4-10.2); Carbon Dioxide 26 mmol/L (22-30); Chloride 102 mmol/L (98-107); Glucose 95 mg/dl (70-99); Lipase 328 U/L (23-300); Potassium 3.5 mmol/L (3.5-5.1); Sodium 135 mmol/L (135-145); Total Protein 7.4 g/dl (6.3-8.2); eGFR > 60.00
[2025-06-12 14:15] LABS: Urine Character Clear (Clear)
[2025-06-12 14:30] LABS: Urine Squamous Cell 0-2 /LPF (Few)
[2025-06-12 14:39] VITALS: BP 113/62
== END 2025-06-12 15:20 | disposition home or self-care (01) ==
LOC: EMR 10:23
PROVIDERS: EMERGENCY PHYSICIAN Emergency Medicine
DX: N39.0 Urinary tract infection, site not specified (principal); B96.5 Pseudomonas (aeruginosa) (mallei) (pseudomallei) as the cause of diseases classified elsewhere; K52.9 Noninfective gastroenteritis and colitis, unspecified; I10 Essential (primary) hypertension; F41.9 Anxiety disorder, unspecified; F32.A Depression, unspecified
CPT/HCPCS: 99284; 96374; 96375; 96361; 74177; 80053; 81003; 81015; 83690; 84703; 85025; 87077; 87086; 87186; Q9967